=== PATIENT | male | born 1980 | race Two or more races ===

== ENCOUNTER → 2023-06-28 22:59 | Emergency (ER) | payer OTHER, MEDICAID ==
[~2023-06-28] VITALS: Ht 177.8 cm; Wt 92.7 kg
[2023-06-28 23:12] VITALS: BP 125/72; PULSE 93; RESP 16; O2SAT 98
== END | disposition left against medical advice (07) ==
LOC: ER 22:59
DX: L50.9 Urticaria, unspecified (principal); Z53.21 Procedure and treatment not carried out due to patient leaving prior to being seen by health care provider